=== PATIENT | male | born 1995 ===

== ENCOUNTER 2022-04-05 06:03 | Day surgery (SDC) | payer OTHER ==
[~2022-04-05 06:03] MED LIST: DAILY VALUE1 EACH PO
[2022-04-05] MEDS ORDERED: CILOXAN5 ML OTIC (12:13)
[2022-04-05] MEDS ORDERED: CEPHALEXIN500 M1 PO (12:13)
== END 2022-04-05 13:50 | disposition home or self-care (01) ==
LOC: CIR.AMB 06:03
PROVIDERS: ATTEND Otolaryngology Otology & Neurotology
DX: H61.321 Acquired stenosis of right external ear canal secondary to inflammation and infection (principal); Z20.822 Contact with and (suspected) exposure to COVID-19; J45.909 Unspecified asthma, uncomplicated